=== PATIENT | male | born 1995 | race Caucasian/White ===

== ENCOUNTER 2021-06-05 17:23 | Emergency (ER) | payer OTHER ==
[2021-06-05] MEDS ORDERED: IBUPROFEN600 MG PO (22:20)
== END 2021-06-05 22:39 | disposition home or self-care (01) ==
LOC: ER1 17:23
DX: M54.50 Low back pain, unspecified (principal); M79.642 Pain in left hand; V43.52XA Car driver injured in collision with other type car in traffic accident, initial encounter; Y92.410 Unspecified street and highway as the place of occurrence of the external cause
CPT/HCPCS: 72128; 72131; 73130; 99284